=== PATIENT | female | born 1975 | race Caucasian/White ===

== ENCOUNTER 2025-05-05 13:42 | Emergency (ER) | payer BC ==
[~2025-05-05] VITALS: Ht 172.7 cm; Wt 62.0 kg
[2025-05-05 13:45] VITALS: O2SAT 95
[2025-05-05] MEDS ORDERED: SODIUM CHLORIDE 0.9% 1,000 ML IV ONE (15:00)
[2025-05-05 15:58] VITALS: BP 115/71; PULSE 95; RESP 16; TEMP 36.7; O2SAT 95
== END 2025-05-05 15:58 | disposition home or self-care (01) ==
LOC: ER 13:42 → EDBD 13:42 → ER 15:58 → CMPBEDREQ 05-06 07:49
DX: R41.82 Altered mental status, unspecified (principal)
CPT/HCPCS: 99283